=== PATIENT | male | born 1975 | race Native Hawaiian/Other Pacific Islander ===

== ENCOUNTER 2019-10-29 11:05 | Emergency (ER) | payer MEDICAID ==
[~2019-10-29] VITALS: Ht 172.7 cm; Wt 72.6 kg
[2019-10-29 11:05] VITALS: BP_SYST 120
--- NOTE | 2019-10-29 11:05 | NUR ---
BROUGHT BACK TO BED #7 VIA WHEELCHAIR, REPORT GIVEN TO MANJIT
[2019-10-29] MEDS ORDERED: IBUP-1971 PO (11:23)
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
[2019-10-29] MEDS ORDERED: KETOROLAC TROMETHAMINE 60 MG/2 ML VIAL IM ONE (11:30)
--- NOTE | 2019-10-29 12:06 | NUR ---
REASSESSMENT; MARKED IMPROVEMENT IN SYMPTOMS PER PATIENT, DISPOSITION PENDING; FULL DISTAL N/C/R REMAIN INTACT
[2019-10-29 12:18] VITALS: BP_SYST 121
--- NOTE | 2019-10-29 12:19 | NUR ---
Patient given written and verbal discharge instructions and verbalizes understanding. ER MD discussed with patient the results and treatment provided. Patient in stable condition. ID arm band removed. Rx ofMOTRIN, NORCO given. Patient educated on pain management and to follow up with PMD. Pain Scale . Opportunity for questions provided and answered. Medication side effect fact sheet provided.
== END 2019-10-29 12:19 | disposition home or self-care (01) ==
LOC: SED 11:05
DX: S90.32XA Contusion of left foot, initial encounter (principal); W18.40XA Slipping, tripping and stumbling without falling, unspecified, initial encounter; Y93.89 Activity, other specified; Y92.89 Other specified places as the place of occurrence of the external cause; Y99.8 Other external cause status
CPT/HCPCS: 73630; 96372; 99283; J1885

== ENCOUNTER 2021-03-12 23:27 | Emergency (ER) | payer MEDICAID ==
[~2021-03-12] VITALS: Ht 172.7 cm; Wt 68.0 kg
[~2021-03-12 23:27] MED LIST: IBUP-1971 PO
[2021-03-13 00:03] VITALS: BP_SYST 169
[2021-03-13] MEDS ORDERED: IBUPROFEN 600 MG TABLET PO ONE (01:30)
[2021-03-13] MEDS ORDERED: KETOROLAC TROMETHAMINE 30 MG VIAL IVP ONE (01:30)
[2021-03-13] MEDS ORDERED: chlordiazePOXIDE HCL 25 MG CAPSULE PO ONE (01:30)
[2021-03-13] MEDS ORDERED: NACL 0.9% 1,000 ML IV ONE (01:30)
[2021-03-13 01:37] LABS: BILIRUBIN,URINE NEGATIVE (NEGATIVE); CLARITY/URINE CLEAR (CLEAR); COLOR,URINE YELLOW (YELLOW); GLUCOSE,URINE NEGATIVE (NEGATIVE); KETONES,URINE 2+ (NEGATIVE); LEUKOCYTE ESTERASE ,URINE NEGATIVE (NEGATIVE); NITRITE, URINE NEGATIVE (NEGATIVE); PH,URINE 5.5 (5.0-8.0); PROTEIN URINE 1+ (NEGATIVE); UROBILINOGEN,URINE 0.2 (0.2-1.0)
[2021-03-13 01:40] LABS: BASOPHILS # (AUTO) 0.1 K/uL (0.0-0.2); BASOPHILS % (AUTO) 0.8 % (0.0-2.0); EOSINOPHILS # (AUTO) 0.1 K/uL (0.0-0.4); EOSINOPHILS % (AUTO) 1.2 % (0.0-4.0); HEMATOCRIT 45.7 % (36-54); HEMOGLOBIN 15.6 g/dL (14.0-18.0); LYMPHOCYTES # (AUTO) 1.9 K/uL (1.0-5.5); LYMPHOCYTES % (AUTO) 22.9 % (20.5-51.5); MEAN CORPUSCULAR HEMOGLOBIN 31 pg (27-31); MEAN CORPUSCULAR HGB CONC 34 % (32-36); MEAN CORPUSCULAR VOLUME 90 fL (79.0-98.0); MONOCYTES # (AUTO) 0.8 K/uL (0.0-1.0); NEUTROPHILS # (AUTO) 5.3 K/uL (1.8-7.7); NEUTROPHILS % (AUTO) 65.1 % (40.0-70.0); PLATELET COUNT (AUTO) 214 K/uL (130-430); RED BLOOD CELL COUNT(AUTO) 5.07 MIL/uL (4.2-6.2); RED CELL DISTRIBUTION WIDTH 13.1 % (9.0-15.0); WHITE BLOOD COUNT (AUTO) 8.2 K/uL (4.8-10.8)
[2021-03-13 01:50] LABS: BARBITURATE, URINE NEGATIVE (NEG <=200); URINE AMPHETAMINE NEGATIVE (NEG <=500)
[2021-03-13 01:51] LABS: BENZODIAZEPINE, URINE NEGATIVE (NEG <=150); CANNABINOID, URINE POSITIVE (NEG <=50); COCAINE, URINE NEGATIVE (NEG <=150); METHAMPHETAMINES SCREEN,URINE NEGATIVE (NEG <=500); OPIATE, URINE NEGATIVE (NEG <=100); PHENCYCLIDINE SCREEN,URINE NEGATIVE (NEG <=25); UR TRICYCLIC ANTIDEPRESSANTS NEGATIVE (NEG <=300); URINE METHADONE NEGATIVE (NEG <=200); URINE OXYCODONE SCREEN NEGATIVE (NEG <=100); URINE PROPOXYPHENE SCREEN NEGATIVE (NEG <=300)
[2021-03-13 01:52] LABS: BLOOD, URINE TRACE (NEGATIVE)
[2021-03-13 01:54] LABS: ANION GAP 11 (5-15); CALCIUM 9.7 mg/dL (8.4-11.0); CHLORIDE 97 mmol/L (98-107); CREATININE 0.83 mg/dL (0.55-1.30); GLUCOSE 109 mg/dL (70-99); POTASSIUM 3.7 mmol/L (3.5-5.1); SODIUM SERUM 135 mmol/L (136-145); UREA NITROGEN, BLOOD 9 mg/dL (8-21)
[2021-03-13 01:57] LABS: GFR AFRICAN AMERICAN 128 mL/min (>90)
[2021-03-13 02:02] LABS: ALANINE AMINOTRANSFERASE 47 U/L (12-78); ALBUMIN 4.1 g/dL (3.4-4.8); ASPARTATE AMINOTRANSFERASE 49 U/L (10-37); LIPASE 79 U/L (73-393); TOTAL BILIRUBIN 1.3 mg/dL (0.0-1.0)
[2021-03-13 02:04] LABS: ALCOHOL, BLOOD < 3 mg/dL (<10)
[2021-03-13 02:24] LABS: WBC,URINE 0-3 /HPF (0-3)
[2021-03-13 02:25] LABS: BACTERIA,URINE FEW /HPF (None Seen)
[2021-03-13] MEDS ORDERED: LORazepam 1 MG TABLET PO ONE ×2 (02:30)
[2021-03-13] MEDS ORDERED: LIB25 PO (02:32)
[2021-03-13 02:40] VITALS: BP_SYST 169
== END 2021-03-13 02:40 | disposition home or self-care (01) ==
LOC: SED 23:27
DX: R10.12 Left upper quadrant pain (principal); F10.988 Alcohol use, unspecified with other alcohol-induced disorder; Z79.899 Other long term (current) drug therapy
CPT/HCPCS: 36415; 80053; 80307; 81000; 83690; 85025; 99283; G0482